=== PATIENT | male | born 1945 | race Native Hawaiian/Other Pacific Islander ===

== ENCOUNTER 2018-01-22 13:26 | Outpatient (CLI) | payer OTHER ==
[2018-01-22 15:38] LABS: PLATELET COUNT 24 K/uL (142-355)
[2018-01-22 15:48] LABS: POTASSIUM 3.7 mmol/L (3.6-5.2)
== END 2018-01-22 19:22 | disposition home or self-care (01) ==
LOC: LAB 13:26
PROVIDERS: Internal Medicine Medical Oncology
DX: C92.20 Atypical chronic myeloid leukemia, BCR/ABL-negative, not having achieved remission (principal); D61.818 Other pancytopenia; M62.81 Muscle weakness (generalized)
CPT/HCPCS: 80053; 82248; 85007; 85027

== ENCOUNTER 2018-01-26 14:51 | Outpatient (CLI) | payer OTHER ==
[2018-01-26 15:49] LABS: POTASSIUM 3.8 mmol/L (3.6-5.2)
[2018-01-26 16:27] LABS: PLATELET COUNT 10 K/uL (142-355)
== END 2018-01-26 20:11 | disposition home or self-care (01) ==
LOC: LAB 14:51
PROVIDERS: Internal Medicine Medical Oncology
DX: C92.00 Acute myeloblastic leukemia, not having achieved remission (principal)
CPT/HCPCS: 80053; 85007; 85027